=== PATIENT | female | born 1995 | race Caucasian/White ===

== ENCOUNTER 2021-11-03 15:03 | Emergency (ER) | payer BC ==
[2021-11-03 17:11] LABS: HEMOGLOBIN 13.5 gm/dl (12.3-15.3); RED BLOOD COUNT 4.91 M/UL (4.00-5.10); WHITE BLOOD COUNT 9.6 K/UL (4.5-11.0)
[2021-11-03 17:37] LABS: BUN/CREATININE RATIO 10 (0-10)
== END 2021-11-03 19:05 | disposition home or self-care (01) ==
LOC: ER1 15:03
DX: O20.9 Hemorrhage in early pregnancy, unspecified (principal); O24.311 Unspecified pre-existing diabetes mellitus in pregnancy, first trimester; Z90.49 Acquired absence of other specified parts of digestive tract; Z90.89 Acquired absence of other organs; Z91.048 Other nonmedicinal substance allergy status; Z91.013 Allergy to seafood
CPT/HCPCS: 80053; 81001; 84702; 84703; 85025; 99284